=== PATIENT | female | born 2005 | race Two or more races ===

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

== ENCOUNTER 2023-04-05 20:38 | Emergency (ER) | payer OTHER ==
[2023-04-05 20:46] VITALS: BP 110/78; PULSE 106; RESP 20; TEMP 97.8; BMI 38.2
== END 2023-04-05 23:48 | disposition home or self-care (01) ==
LOC: JER 20:38 → JERFT 20:38 → JER 23:48
DX: S63.501A Unspecified sprain of right wrist, initial encounter (principal); W01.0XXA Fall on same level from slipping, tripping and stumbling without subsequent striking against object, initial encounter; X50.0XXA Overexertion from strenuous movement or load, initial encounter
CPT/HCPCS: 73110-TC-RT-FY; 73130-TC-RT-FY; 99283-25

== ENCOUNTER 2023-04-13 19:35 | Emergency (ER) | payer OTHER ==
[2023-04-13 19:40] VITALS: BMI 38.2
[2023-04-13] MEDS ORDERED: POLYETHYLENE GLYCOL (HEALTHYLAX) 3350 17 GM PACKET ONE (21:24)
[2023-04-13] MEDS ORDERED: POLYETHYLENE GLYCOL (HEALTHYLAX) 3350 17 GM PACKET PO SCH (21:30)
[2023-04-13 21:39] VITALS: BP 100/72; PULSE 88; RESP 19; TEMP 98.6
== END 2023-04-13 21:38 | disposition home or self-care (01) ==
LOC: JERFT 19:35
DX: K59.01 Slow transit constipation (principal)
CPT/HCPCS: 74019-TC-FY; 82962; 99284-25

== ENCOUNTER 2023-04-22 18:50 | Emergency (ER) | payer OTHER ==
[2023-04-22 18:59] VITALS: BP 109/68; PULSE 81; RESP 18; TEMP 98.7; BMI 38.2
[2023-04-22] MEDS ORDERED: MAG HYDROX/AL HYDROX/SIMETH 30 ML UNIT-DOSE CUP PO ONE (19:37)
[2023-04-22] MEDS ORDERED: LIDOCAINE VISCOUS 2% ORAL/TOP 15 ML UNIT-DOSE CUP MM ONE (19:37)
[2023-04-22] MEDS ORDERED: ACETAMINOPHEN 500 MG TABLET (FP) PO ONE (19:39)
[2023-04-22] MEDS ORDERED: LIDOCAINE VISCOUS 2% ORAL/TOP 15 ML UNIT-DOSE CUP ONE (20:40)
[2023-04-22] MEDS ORDERED: ACETAMINOPHEN 325 MG TABLET (FP) ONE (20:40)
[2023-04-22] MEDS ORDERED: MAG HYDROX/AL HYDROX/SIMETH 30 ML UNIT-DOSE CUP ONE (20:41)
== END 2023-04-22 21:45 | disposition home or self-care (01) ==
LOC: JER 18:50
DX: T17.200A Unspecified foreign body in pharynx causing asphyxiation, initial encounter (principal); F41.9 Anxiety disorder, unspecified; R06.2 Wheezing
CPT/HCPCS: 70360-TC-FY; 70490-TC; 71046-TC-FY; 84703; 99285-25